=== PATIENT | female | born 2000 | race Caucasian/White ===

== ENCOUNTER 2023-02-03 10:50 | Emergency (ER) | payer OTHER ==
[~2023-02-03] VITALS: Ht 167.6 cm; Wt 63.5 kg
--- NOTE | 2023-02-03 10:52 | NUR ---
PT BIBA TO BED 6
[2023-02-03 10:54] VITALS: BP 118/75
[2023-02-03 11:07] VITALS: BP 118/63
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
--- NOTE | 2023-02-03 11:38 | NUR ---
Pt has refused tetnus. Pt is awaiting clearance from provider. Pt is resting no signs and symptoms of distress noted at this time. PD laboratory inspector at bed side to drawl labs.
--- NOTE | 2023-02-03 11:40 | NUR ---
PATIENT BIB [place] [employer]. PATIENT EXAMINED BY . PATIENT MEDICALLY CLEARED AND RELEASED IN CUSTODY IN STABLE CONDITION. ORIGINAL PRE-BOOK FORM GIVEN TO OFFICER.
--- NOTE | 2023-02-03 11:41 | NUR ---
PT REFUSED WOUND CARE
--- NOTE | 2023-02-03 13:02 | NUR ---
Note adonay in ED - 02/03/23 at 1307 by [email or web address] Pt in bed still expressing forms of altered mental state. Pt stated she wanted to use restroom place pt on bed [place], pt did not urinate. Offered to change pts sanitary napkin pt refused. Pt will continue to be monitored for any changes to LOC. Pt continues to lay in bed and waiting for discharge.
== END 2023-02-03 10:52 ==
LOC: MED 10:50
DX: S80.212A Abrasion, left knee, initial encounter (principal); S80.211A Abrasion, right knee, initial encounter; V49.88XA Car occupant (driver) (passenger) injured in other specified transport accidents, initial encounter; Y93.89 Activity, other specified; Y92.89 Other specified places as the place of occurrence of the external cause; Y99.8 Other external cause status
CPT/HCPCS: 99283